=== PATIENT | male | born 1955 | race Hispanic/Latino ===

== ENCOUNTER 2018-01-17 12:51 | Day surgery (SDC) | payer OTHER | END 2018-01-17 12:52 | disposition home or self-care (01) | LOC: OR 12:51 | PROVIDERS: ATTEND Urology | DX: C67.2 Malignant neoplasm of lateral wall of bladder (principal); Z53.8 Procedure and treatment not carried out for other reasons ==

== ENCOUNTER 2018-01-18 09:27 | Day surgery (SDC) | payer OTHER ==
[2018-01-18] MEDS ORDERED: XYLOCAINE MPF 2% ONE ×2 (11:42→12:46)
[2018-01-18] MEDS ORDERED: DILAUDID ONE (11:42)
[2018-01-18] MEDS ORDERED: DIPRIVAN 10 MG/ML IV ONE (11:42)
[2018-01-18] MEDS ORDERED: DECADRON ONE ×2 (11:43→12:52)
[2018-01-18] MEDS ORDERED: ZOFRAN ONE ×2 (11:43→12:52)
[2018-01-18] MEDS ORDERED: DILAUDID IV PRN (11:56)
[2018-01-18] MEDS ORDERED: NACL 0.9% 1000 ML 1,000 ML IV SCH (12:00)
[2018-01-18] MEDS ORDERED: ANCEF/STERILE WATER 2 GM/20 ML IV NR (12:00)
[2018-01-18] MEDS ORDERED: ROBINUL IV NR (12:00)
[2018-01-18] MEDS ORDERED: VERSED IV NR (12:00)
--- NOTE | 2018-01-18 12:00 | Short Stay Summary ---
Short Stay Documentation Date of service: 01/18/18 - History H&P: obtained from office - Allergies and Medications Current Medications: Allergies No Known Allergies Allergy (Verified 01/09/18 12:57) Home Medications Medication Instructions Recorded Confirmed Last Taken Type Omeprazole Magnesium [PriLOSEC Otc] 20 mg PO QDAY 01/09/18 01/09/18 Unknown History Tamsulosin [Flomax] 0.4 mg PO QDAY 01/09/18 01/09/18 Unknown History amLODIPine [Norvasc] 2.5 mg PO DAILY 01/09/18 01/09/18 Unknown History Active Medications Cefazolin Sodium (Ancef/Sterile Water 2 Gm/20 Ml) 2 gm IV PREOP NR Stop: 01/18/18 23:59 Glycopyrrolate (Robinul) 0.2 mg IV PREOP NR Stop: 01/18/18 23:59 Hydromorphone HCl (Dilaudid) 0.25 mg IV Q10M PRN PRN Reason: Pain , Severe (7-10) Sodium Chloride (Nacl 0.9% 1000 Ml) 1,000 mls @ 75 mls/hr IV DIRECT YEE Midazolam HCl (Versed) 2 mg IV PREOP NR Stop: 01/18/18 23:59 - Brief post op/procedure progress note Date of procedure: 01/18/18 Pre-op diagnosis: bladder ca Post-op diagnosis: same Procedure: cysto, deep bladder bx lesion intram and tumor base Anesthesia: GETA Findings: intramurla uret lesion Surgeon: JYOTI MART Estimated blood loss: minimal Pathology: list (x2, intram uret rt and tumor base) Specimen disposition: to lab Condition: stable - Hospital course Hospital course: or pacu home - Disposition Condition at discharge: Good Disposition: DC-01 TO HOME OR SELFCARE Short Stay Discharge Plan Activity: advance as tolerated Diet: advance as tolerated Follow up with: JYOTI MART MD [Staff Physician] - 7 Days
--- NOTE | 2018-01-18 12:50 | Anesthesia Consultation ---
Anesthesia Consult and Med Hx Date of service: 01/18/18 - Airway Anesthetic Teeth Evaluation: Good - Pulmonary Exam CTA: Yes (normal ) - Cardiac Exam Cardiac Exam: No Murmur - Pre-Operative Health Status ASA Pre-Surgery Classification: ASA2 Proposed Anesthetic Plan: General - Pulmonary Hx Smoking: Yes (STOPPED X 3 YRS ( 1 1/2 PPD)) SOB: Yes (SOB) Hx Sleep Apnea: No (ALLA PRE SCREEN HIGH RISK) - Cardiovascular System Hx Hypertension: Yes (x 2 yrs) - Central Nervous System Hx Back Pain: Yes (NECK AND BACK PAIN) - Other Systems Hx Cancer: Yes (SKIN CA RT WRIST- REMOVED/NO CHEMO/RADIATION)
[2018-01-18] MEDS ORDERED: WATER FOR IRRIG STERILE IR ONE (13:18)
[2018-01-18] MEDS ORDERED: ePHEDrine SULFATE ONE (13:45)
--- NOTE | 2018-01-18 14:07 | Fluoroscopy Report ---
FLUOROSCOPY RETROGRADE UROGRAPHY: HISTORY: Bladder cancer. FINDINGS: Fluoroscopy was provided by radiology during retrograde urography by the urologist. 8 fluoroscopic images were captured. There is adequate filling of the ureters and intrarenal collecting systems with no filling defects or anatomic abnormalities identified. Please correlate with the procedural report if needed. IMPRESSION: Retrograde pyelograms within normal limits.
[2018-01-18 18:35] VITALS: BP 118/70
--- NOTE | 2018-01-29 07:53 | Operative Report ---
PREOPERATIVE DIAGNOSIS: Bladder cancer. POSTOPERATIVE DIAGNOSIS: Bladder cancer. PROCEDURE: Cystoscopy, deep bladder biopsy, lesion of the overlying intramural ureter and tumor base biopsy. ANESTHESIA: General. FINDINGS: A small lesion over the intramural ureter. SURGEON: German Cardoza M.D. ESTIMATED BLOOD LOSS: Minimal. PATHOLOGY: x 2 intramural ureter and previous tumor base that was cephalad to the intramural ureter. SPECIMENS: To lab. CONDITION: Stable. CLINICAL INDICATIONS: The patient counseled RCBA, antibiotics, SCDs, including option for second opinion and other options. He wanted to proceed with this procedure. DESCRIPTION OF PROCEDURE: The patient was transferred to the OR suite in supine position, anesthesia, dorsal lithotomy, prepped and draped in standard fashion. A 22-Marshallese scope passed. Pancystoscopy 30 and 70 lens. There was maybe a very small lesion over the intramural ureter around the previous resection site. Left UO cannulated, 8-Marshallese cone-tipped catheter, contrast injected. Normal left distal ureter, proximal ureter, renal pelvis calyces, no filling defects or hydronephrosis. Repeated on the right side, had a good view of the UVJ, distal ureter, proximal ureter, renal pelvis, calyces, no filling defects or hydronephrosis and the distal ureter showed no obstruction even up to the UVJ and delicate margins. At this point, deep rigid biopsy forceps were used to take deep biopsies into the muscle overlying the very small papillary lesion over the intramural ureter, which was also the sites of areas of previous resection. Next, at the base and areas of the previous resection, a deep biopsy was taken and sent for pathology. Also, surrounding areas were fulgurated. There was noted efflux from the right and left ureter. Bladder was irrigated several times. The patient was awakened and transferred to the PACU in good and stable condition. JOB# [id number] ATS/NTS
== END 2018-01-18 16:15 | disposition home or self-care (01) ==
LOC: OR 09:27
PROVIDERS: ATTEND Urology
DX: Z08 Encounter for follow-up examination after completed treatment for malignant neoplasm (principal); C67.6 Malignant neoplasm of ureteric orifice; I10 Essential (primary) hypertension; E11.9 Type 2 diabetes mellitus without complications; K21.9 Gastro-esophageal reflux disease without esophagitis; Z87.891 Personal history of nicotine dependence; Z85.828 Personal history of other malignant neoplasm of skin
CPT/HCPCS: 52005; 52224; 74420; 88305; A4217; C1758; C1769; J0690; J1100; J1170; J2250; J2405; J2704; J7030; Q9967

== ENCOUNTER 2019-01-15 12:10 | Day surgery (SDC) | payer OTHER ==
--- NOTE | 2019-01-15 13:51 | Anesthesia Consultation ---
Anesthesia Consult and Med Hx - Airway Anesthetic Teeth Evaluation: Good ROM Head & Neck: Adequate Mental/Hyoid Distance: Adequate Mallampati Class: Class II Intubation Access Assessment: Good - Pulmonary Exam CTA: Yes - Cardiac Exam Cardiac Exam: RRR - Pre-Operative Health Status ASA Pre-Surgery Classification: ASA2 Proposed Anesthetic Plan: General - Pulmonary Hx Smoking: Yes (STOPPED X 4 YRS (1 1/2 PPD)) SOB: Yes (SOB) Hx Sleep Apnea: No (ALLA PRE SCREEN HIGH RISK.) - Cardiovascular System Hx Hypertension: Yes (X 3 YRS) - Central Nervous System Hx Back Pain: Yes (NECK AND BACK PAIN) - Endocrine Hx Non-Insulin Dependent Diabetes: No (Patient is prediabetic) - Other Systems Hx Alcohol Use: Yes (occasional) Hx Cancer: Yes (SKIN CA RT WRIST- REMOVED/NO CHEMO/RADIATION)
[2019-01-15] MEDS ORDERED: ZOFRAN IV PRN (13:52)
[2019-01-15] MEDS ORDERED: DILAUDID IV PRN (13:52)
--- NOTE | 2019-01-15 13:52 | Anesthesia Day of Surgery ---
Anesthesia Day of Surgery - Day of Surgery Patient Examined: Yes Patient H&P Reviewed: Yes Patient is NPO: Yes
[2019-01-15] MEDS ORDERED: VERSED IV NR (14:00)
[2019-01-15] MEDS ORDERED: LACTATED RINGERS 1,000 ML IV SCH (14:00)
[2019-01-15] MEDS ORDERED: PEPCID PO NR (14:00)
[2019-01-15] MEDS ORDERED: ANCEF/STERILE WATER 2 GM/20 ML IV NR (15:00)
[2019-01-15] MEDS ORDERED: DILAUDID ONE (15:36)
[2019-01-15] MEDS ORDERED: DIPRIVAN 10 MG/ML IV ONE (15:36)
[2019-01-15] MEDS ORDERED: XYLOCAINE MPF 2% ONE (15:37)
[2019-01-15] MEDS ORDERED: OMNIPAQUE 300 MG/50 ML (CATH LAB) IV ONE (16:02)
[2019-01-15] MEDS ORDERED: ZOFRAN ONE (16:45)
--- NOTE | 2019-01-15 16:53 | Short Stay Summary ---
Short Stay Documentation Date of service: 01/15/19 - History H&P: obtained from office - Allergies and Medications Current Medications: Allergies No Known Allergies Allergy (Verified 01/09/18 12:57) Home Medications Medication Instructions Recorded Confirmed Last Taken Type Omeprazole Magnesium [PriLOSEC Otc] 20 mg PO QDAY 01/09/18 01/15/19 01/14/19 20:00 History Tamsulosin [Flomax] 0.4 mg PO QDAY 01/09/18 01/15/19 01/14/19 20:00 History amLODIPine [Norvasc] 2.5 mg PO DAILY 01/09/18 01/15/19 01/14/19 19:00 History Multivitamin [Multiple Vitamins] 1 each PO DAILY 01/18/18 01/15/19 01/14/19 20:00 History Zolpidem [Ambien] 10 mg PO QHS 01/18/18 01/15/19 01/14/19 20:00 History Aspirin 325 mg PO QDAY 01/03/19 01/15/19 01/08/19 09:00 History AtorvaSTATin [Lipitor] 40 mg PO QHS 01/03/19 01/15/19 01/14/19 20:00 History Etanercept [Enbrel] 50 mg SQ QWEEK 01/03/19 01/03/19 Unknown History Venlafaxine [Effexor] 75 mg PO QHS 01/03/19 01/15/19 01/14/19 20:00 History Active Medications Cefazolin Sodium (Ancef/Sterile Water 2 Gm/20 Ml) 2 gm IV PREOP NR Stop: 01/15/19 20:00 Famotidine (Pepcid) 20 mg PO PREOP NR Stop: 01/15/19 23:59 Last Admin: 01/15/19 14:10 Dose: 20 mg Documented by: Hydromorphone HCl (Dilaudid) 0.5 mg IV Q10MIN PRN PRN Reason: Pain , Severe (7-10) Stop: 01/15/19 23:59 Lactated Ringer's (Lactated Ringers) 1,000 mls @ 75 mls/hr IV DIRECT YEE Last Admin: 01/15/19 14:10 Dose: 75 mls/hr Documented by: Midazolam HCl (Versed) 2 mg IV PREOP NR Stop: 01/15/19 23:59 Last Admin: 01/15/19 14:52 Dose: 2 mg Documented by: Ondansetron HCl (Zofran) 4 mg IV ONCE PRN PRN Reason: Nausea And Vomiting - Brief post op/procedure progress note Date of procedure: 01/15/19 Pre-op diagnosis: Bladder Ca Post-op diagnosis: same Procedure: cysto, rpg, TURBT, Bladder bx, fulguration of lesions Anesthesia: GETA Findings: small papillary lesion rt post wall x2, left base, possible lesion left medial lobe just inside BN and pt's left at about the 5 positions, just inside/at BN papillary area Surgeon: JYOTI MART Estimated blood loss: minimal Pathology: list Specimen disposition: to lab Condition: stable - Hospital course Hospital course: orpacuhome - Disposition Condition at discharge: Good Disposition: DC-01 TO HOME OR SELFCARE Short Stay Discharge Plan Activity: advance as tolerated Diet: advance as tolerated Follow up with: JYOTI MART MD [Staff Physician] - 7 Days
[2019-01-15 17:41] VITALS: BP 126/63
--- NOTE | 2019-01-15 18:52 | Post Anesthesia Evaluation ---
- Post Anesthesia Evaluation Patient Participated: Yes Airway Patent: Yes Stable Respiratory Function: Yes Nausea/Vomiting: No Temp > 96.8F: Yes Pain Manageable: Yes Adequeate Hydration: Yes Anesthesia Complications: No Block Receding Appropriately: Not Applicable Patient on Ventilator: No
--- NOTE | 2019-01-17 07:43 | Fluoroscopy Report ---
FLUOROSCOPY RETROGRADE UROGRAPHY: HISTORY: Bladder cancer. FINDINGS: Fluoroscopy was provided by radiology during retrograde urography by the urologist. 8 fluoroscopic images were captured. There is adequate filling of the ureters and intrarenal collecting systems with no filling defects or anatomic abnormalities identified. Please correlate with the procedural report if needed. IMPRESSION: Retrograde pyelograms within normal limits. No change since 01/18/18.
--- NOTE | 2019-01-22 11:59 | Event Note ---
Date: 01/15/19 Op Note Dict number [id number]
--- NOTE | 2019-01-22 14:11 | Operative Report ---
PREOPERATIVE DIAGNOSIS: Bladder cancer. POSTOPERATIVE DIAGNOSIS: Bladder cancer. PROCEDURES: Cystoscopy, RPG, TURBT, bladder biopsy, fulguration of lesions. FINDINGS: Small papillary lesions in the right posterior wall x 2, papillary lesion small on the left base, possible lesion medial lobe just inside the bladder neck and the patient's left at about 5 o'clock position just inside the bladder neck papillary area resection. SURGEON: German Cardoza M.D. ESTIMATED BLOOD LOSS: Minimal. PATHOLOGY: ____ findings. SPECIMENS: To lab. CONDITION: Stable. CLINICAL INDICATIONS: The patient counseled RCBA, antibiotics, SCDs. DESCRIPTION OF PROCEDURE: The patient transferred to the OR suite in supine position, anesthesia, dorsal lithotomy, prepped and draped in standard fashion. A 22-Macedonian scope passed, normal penile urethra. Upon entering the prostatic urethra at the median lobe, a little bit towards the patient's left side, there was some slight, may be inflamed or papillary area and also just inside the bladder neck ____ my 5 o'clock position on the patient's left. At this point, scope was passed into the bladder, pancystoscopy with 30 and 70 degree lens. There were some papillary lesions identified. Very small right retrograde pyelogram demonstrated normal right distal ureter, proximal ureter, renal pelvis calices, no filling defects or hydronephrosis. Repeated on the left side with similar or normal findings. At this point, we visualized other areas. The retrograde pyelograms were normal. At this point, there was a small papillary lesion x 2 adjacent to each other in the right posterior wall and left base. Flexible biopsy forceps were passed. The biopsy was taken of the right posterior wall x 2 ____ base. Then, we attempted using the rigid biopsy forceps, then used a TUR resection loop. It was used ____ transurethral resection of what looked like a possible tumor was done just inside the bladder neck at the left side of the median lobe and then at the my 5 o'clock position on the patient's left side just lateral to the other side just inside the bladder neck towards the prostate. Just at the prostate, bladder neck papillary area ____ resected and biopsied sent. Rollerball passed. We cauterized the posterior bladder wall areas. The bladder was irrigated multiple times and drained. Once again, these were all very small, ____ papillary areas. All areas were cauterized but this is possibility ____ not being cancer, but we will see what the pathology result. Bladder was irrigated multiple times, flushed out. Scope withdrawn. Of note, the patient has moderately large lateral lobes. Scope withdrawn. Exam under anesthesia, bilateral testicles, no nodules. The patient awakened and transferred to the PACU in good and stable condition. JOB# [id number] ATS/NTS
== END 2019-01-15 18:40 | disposition home or self-care (01) ==
LOC: OR 12:10
PROVIDERS: ATTEND Urology
DX: C67.4 Malignant neoplasm of posterior wall of bladder (principal); C67.5 Malignant neoplasm of bladder neck; C61 Malignant neoplasm of prostate; E78.00 Pure hypercholesterolemia, unspecified; I10 Essential (primary) hypertension; K21.9 Gastro-esophageal reflux disease without esophagitis; M19.90 Unspecified osteoarthritis, unspecified site; E11.9 Type 2 diabetes mellitus without complications; F32.9 Major depressive disorder, single episode, unspecified; Z72.89 Other problems related to lifestyle; Z85.89 Personal history of malignant neoplasm of other organs and systems; Z98.890 Other specified postprocedural states; Z87.442 Personal history of urinary calculi; Z79.899 Other long term (current) drug therapy; Z79.82 Long term (current) use of aspirin; Z87.891 Personal history of nicotine dependence
CPT/HCPCS: 52204; 52500; 74420; 82962; 88305; C1726; C1758; C1769; J0690; J1170; J2250; J2405; J2704; J7120; Q9967